=== PATIENT | male | born 1975 | race Caucasian/White ===

== ENCOUNTER 2016-08-29 19:17 | Emergency (ER) | payer SELFPAY ==
[2016-08-29] MEDS ORDERED: SILVER SULFADIAZINE 1% CREAM 400 GM TP PRN (21:42)
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
[2016-08-29 22:29] VITALS: BP 148/43
== END 2016-08-29 22:25 | disposition home or self-care (01) ==
LOC: ER 19:17
DX: T24.202A Burn of second degree of unspecified site of left lower limb, except ankle and foot, initial encounter (principal); F17.210 Nicotine dependence, cigarettes, uncomplicated; X01.0XXA Exposure to flames in uncontrolled fire, not in building or structure, initial encounter; Y93.H9 Activity, other involving exterior property and land maintenance, building and construction
CPT/HCPCS: 99283; J3490